=== PATIENT | female | born 1975 | race Caucasian/White ===

== ENCOUNTER → 2024-11-02 11:28 | Outpatient (BNVA) | payer OTHER, SELFPAY | PROVIDERS: Family Provider Family Medicine; PCP Family Medicine; Visit Provider Internal Medicine Rheumatology | DX: M25.50 Pain in unspecified joint (principal) | CPT/HCPCS: 36415; 80076; 82565; 85025; 85651; 86140; 86160; 86162; 86235; 86255; 86376 ==